=== PATIENT | female | born 1935 | race American Indian/Alaskan Native ===

== ENCOUNTER 2018-09-28 13:23 | Outpatient (CLI) | payer MEDICARE ==
--- NOTE | 2018-09-28 14:30 | XRay Report ---
LEFT HIP, 2 views: History: Hip pain chronic Findings: Bone mineralization is slightly decreased. Severe osteoarthritic changes are identified at the left hip. There is near-complete loss of joint space. No obvious fracture, bone lesion or osteonecrosis. The left hemipelvis is intact. Large calcified uterine fibroid in the pelvis as noted measuring up to 6 cm. IMPRESSION: Osteopenia. Severe osteoarthritis.
== END 2018-09-28 13:24 | disposition home or self-care (01) ==
LOC: XRAY 13:23
PROVIDERS: ATTEND Internal Medicine
DX: M16.12 Unilateral primary osteoarthritis, left hip (principal); M85.88 Other specified disorders of bone density and structure, other site; E78.00 Pure hypercholesterolemia, unspecified; Z86.2 Personal history of diseases of the blood and blood-forming organs and certain disorders involving the immune mechanism

== ENCOUNTER 2021-02-16 23:57 | Emergency (ER) | payer MEDICARE, OTHER ==
--- NOTE | 2021-02-17 00:23 | Emergency Department Report ---
ED General Adult HPI - General Stated complaint: CONSTIPATION Time Seen by Provider: 02/17/21 00:01 Source: patient, EMS - History of Present Illness Initial comments: 85-year-old female presents to ED with complaint of constipation. States she normally has a bowel movement every day, however it has been 2 days since her last bowel movement. Patient states the fact that it has been 2 days is not what is bothering her, however she reports that she has very hard stool "that will not go up or down" and it is causing a lot of rectal pain. Patient states she took a laxative but it did not help. She denies any abdominal pain or vomiting. Patient's daughter at bedside. Patient currently taking hydrocodone for arthritis. -: days(s) (2) Location: buttocks Quality: other (pressure) Improves with: none Worsens with: none Associated Symptoms: denies: fever/chills, nausea/vomiting Treatments Prior to Arrival: none - Related Data Home Medications Medication Instructions Recorded Confirmed Last Taken Pravastatin [Pravachol] 40 mg PO DAILY 05/23/15 11/09/17 08/23/17 Sitagliptin Phosphate [Januvia] 100 mg PO DAILY 05/23/15 11/09/17 08/24/17 Naproxen [Naprosyn TAB] 500 mg PO Q12H PRN 04/01/16 11/09/17 04/01/16 Anastrozole (Nf) [Arimidex (Nf)] 1 mg PO DAILY 11/09/17 11/09/17 Unknown Gabapentin 300 mg PO TID 11/09/17 11/09/17 Unknown Levothyroxine Sodium [Synthroid] 88 mcg PO DAILY 11/09/17 11/09/17 Unknown Triamterene/Hydrochlorothiazid 1 each PO DAILY 11/09/17 11/09/17 Unknown [Triamterene-Hctz 37.5-25 mg Cp] Previous Rx's Medication Instructions Recorded Last Taken Type Apixaban [Eliquis] 2 tab PO BID #68 tablet 11/11/17 Unknown Rx Docusate Sodium [Colace] 100 mg PO BID PRN #30 capsule 02/17/21 Unknown Rx Allergies Allergy/AdvReac Type Severity Reaction Status Date / Time No Known Allergies Allergy Verified 06/23/18 14:18 ED Review of Systems ROS: Stated complaint: CONSTIPATION Other details as noted in HPI Comment: All other systems reviewed and negative Constitutional: denies: fever Gastrointestinal: constipation. denies: abdominal pain, vomiting ED Past Medical Hx - Past Medical History Hx Hypertension: Yes (9Y) Hx Congestive Heart Failure: No Hx Diabetes: Yes (9Y) Hx Deep Vein Thrombosis: Yes (3 YEARS AGO) Hx Arthritis: Yes Hx Asthma: No Hx COPD: No Hx HIV: No Additional medical history: DVT Right leg - Surgical History Additional Surgical History: left mastectomy (2016) - Social History Smoking Status: Never Smoker - Medications Home Medications: Home Medications Medication Instructions Recorded Confirmed Last Taken Type Pravastatin [Pravachol] 40 mg PO DAILY 05/23/15 11/09/17 08/23/17 History Sitagliptin Phosphate [Januvia] 100 mg PO DAILY 05/23/15 11/09/17 08/24/17 History Naproxen [Naprosyn TAB] 500 mg PO Q12H PRN 04/01/16 11/09/17 04/01/16 History Anastrozole (Nf) [Arimidex (Nf)] 1 mg PO DAILY 11/09/17 11/09/17 Unknown History Gabapentin 300 mg PO TID 11/09/17 11/09/17 Unknown History Levothyroxine Sodium [Synthroid] 88 mcg PO DAILY 11/09/17 11/09/17 Unknown History Triamterene/Hydrochlorothiazid 1 each PO DAILY 11/09/17 11/09/17 Unknown History [Triamterene-Hctz 37.5-25 mg Cp] Apixaban [Eliquis] 2 tab PO BID #68 tablet 11/11/17 Unknown Rx Docusate Sodium [Colace] 100 mg PO BID PRN #30 capsule 02/17/21 Unknown Rx ED Physical Exam - General General appearance: alert, in no apparent distress - Head Head exam: Present: atraumatic, normocephalic - Eye Eye exam: Present: normal appearance, EOMI - ENT ENT exam: Present: mucous membranes moist - Neck Neck exam: Present: normal inspection - Respiratory Respiratory exam: Present: normal lung sounds bilaterally. Absent: respiratory distress - Cardiovascular Cardiovascular Exam: Present: regular rate, normal rhythm - GI/Abdominal GI/Abdominal exam: Present: soft. Absent: distended, tenderness - Rectal Rectal exam: Present: heme (-) stool, fecal impaction - Extremities Exam Extremities exam: Present: normal inspection - Neurological Exam Neurological exam: Present: alert, oriented X3 - Psychiatric Psychiatric exam: Present: normal affect, normal mood - Skin Skin exam: Present: warm, dry, intact, normal color ED Course Vital Signs 02/17/21 02/17/21 02/17/21 00:05 00:16 00:30 Temperature 98.4 F Pulse Rate 75 75 61 Respiratory 13 16 Rate Blood Pressure 127/57 145/55 Blood Pressure 151/67 [Right] O2 Sat by Pulse 100 100 98 Oximetry 02/17/21 02/17/21 02/17/21 00:46 01:00 01:16 Temperature Pulse Rate 82 66 65 Respiratory 14 20 Rate Blood Pressure 145/55 131/45 131/46 Blood Pressure [Right] O2 Sat by Pulse 90 98 99 Oximetry 02/17/21 02/17/21 02/17/21 02:00 02:39 03:39 Temperature Pulse Rate 77 Respiratory 16 18 18 Rate Blood Pressure 131/45 Blood Pressure [Right] O2 Sat by Pulse 98 Oximetry - Rectal Disimpaction Consent Obtained: verbal consent Time Out Performed: Yes Indication: fecal impaction Procedural Sedation: No Sedation/Analgesia: none Technique: manual disimpaction with Result: significant stool output Complications: pain Patient Tolerated Procedure: well ED Medical Decision Making - Radiology Data Radiology results: report reviewed, image reviewed - Differential Diagnosis Fecal impaction, constipation, bowel obstruction Critical care attestation.: If time is entered above; I have spent that time in minutes in the direct care of this critically ill patient, excluding procedure time. ED Disposition Clinical Impression: Fecal impaction Disposition: TO HOME OR SELFCARE Is pt being admited?: No Condition: Stable Instructions: Constipation, Adult, [id number], Fecal Impaction Prescriptions: Docusate Sodium [Colace] 100 mg PO BID PRN #30 capsule PRN Reason: Constipation Referrals: PRIMARY CARE, [Primary Care Provider] - 3-5 Days
--- NOTE | 2021-02-17 00:55 | XRay Report ---
ABDOMEN 2 VIEWS WITH AP CHEST INDICATION / CLINICAL INFORMATION: constipation. COMPARISON: None available. FINDINGS: CHEST. No evidence of acute cardiopulmonary disease BOWEL: No dilated bowel. FREE AIR / EXTRALUMINAL GAS: None seen. CALCIFICATIONS: Calcified uterine fibroids in the pelvis. ADDITIONAL FINDINGS: Degenerative changes lumbar spine. Degenerative changes both hips LUNGS: Visualized lungs show no significant abnormality. SKELETAL STRUCTURES: No significant abnormality. IMPRESSION: 1. No significant abnormality. Signer Name: Hunter Cornejo MD Signed: 02/17/2021 12:50 AM Workstation Name: [id number]
[2021-02-17] MEDS ORDERED: FLEET ENEMA PR ONE (00:56)
[2021-02-17] MEDS ORDERED: ACETAMINOPHEN 325 MG TAB PO ONE (02:36)
[2021-02-17 05:52] VITALS: BP 131/45
== END 2021-02-17 03:40 | disposition home or self-care (01) ==
LOC: ED 23:57
DX: K56.41 Fecal impaction (principal); I10 Essential (primary) hypertension; E11.9 Type 2 diabetes mellitus without complications; M19.91 Primary osteoarthritis, unspecified site; Z98.890 Other specified postprocedural states; Z79.899 Other long term (current) drug therapy
CPT/HCPCS: 74022; 99284